=== PATIENT | male | born 1985 | race American Indian/Alaskan Native ===

== ENCOUNTER 2016-10-12 19:40 | Emergency (ER) | payer SELFPAY ==
[2016-10-12] MEDS ORDERED: TYLENOL PO STA (20:17)
[2016-10-12] MEDS ORDERED: ZOFRAN IV ONE (21:28)
[2016-10-12] MEDS ORDERED: MORPHINE IV ONE (21:28)
--- NOTE | 2016-10-12 21:35 | Emergency Department Report ---
HPI - General Chief Complaint: Pain General Time Seen by Provider: 10/12/16 21:20 - HPI HPI: Room 18 The patient is 30-year-old male presenting with a chief complaint of headache abdominal pain and groin pain. Patient states his symptoms began 4 days ago with a retro-orbital headache. Patient states 2 days ago he developed pain in the right testicle radiating to his right abdomen. Patient admits to nausea but denies vomiting. Patient denies dysuria or hematuria. Patient admits to a cough is occasionally productive of yellow-green sputum. Patient states he did not notice a fever at home but admits to chills. Patient currently gives his pain a score of 10/10 Location: Head, right lower quadrant, right testicle Duration: 2-4 days Quality: Pain Severity: 10/10 Modifying factors: [see above] Context: [see above] Mode of transportation: [not driving] ED Past Medical Hx - Past Medical History Previous Medical History?: No - Surgical History Past Surgical History?: No - Family History Family history: no significant - Social History Smoking Status: Current Some Day Smoker Substance Use Type: Marijuana (occasional) - Medications Home Medications: Home Medications Medication Instructions Recorded Confirmed Last Taken Type Amoxicillin/K Clav Tab [Augmentin 1 tab PO Q12HR #20 tab 10/13/16 Unknown Rx 875 mg] HYDROcodone/APAP 5-325 [[place] 1 - 2 each PO Q6HR PRN #14 tablet 10/13/16 Unknown Rx 5/325] ED Review of Systems ROS: Stated complaint: HEADACHE/GROIN/ABD PAIN Other details as noted in HPI Comment: All other systems reviewed and negative Constitutional: chills, fever Eyes: denies: eye discharge, vision change ENT: denies: ear pain, throat pain Respiratory: cough Cardiovascular: denies: chest pain, palpitations Endocrine: no symptoms reported Gastrointestinal: abdominal pain, nausea. denies: vomiting Genitourinary: testicular pain. denies: urgency, dysuria, hematuria Musculoskeletal: denies: back pain, joint swelling, arthralgia Skin: denies: rash, lesions Neurological: headache Psychiatric: denies: anxiety, depression Hematological/Lymphatic: denies: easy bleeding, easy bruising Physical Exam - Physical Exam Vital Signs: Vital Signs 10/12/16 10/12/16 19:56 20:02 Temperature 101.6 F H 101.6 F H Pulse Rate 88 88 Respiratory 18 Rate Blood Pressure 150/90 Blood Pressure 149/91 [Right] O2 Sat by Pulse 100 100 Oximetry Physical Exam: GENERAL: The patient is well-developed well-nourished male lying on stretcher not appear to be in acute distress. [] HEENT: Normocephalic. Atraumatic. Extraocular motions are intact. Patient has moist mucous membranes. NECK: Supple. No meningitic signs are noted. Trachea midline CHEST/LUNGS: Clear to auscultation. There is no respiratory distress noted. HEART/CARDIOVASCULAR: Regular. There is no tachycardia. There is no gallop rub or murmur. ABDOMEN: Abdomen is soft, with mild discomfort to palpation in the right lower quadrant. Patient has normal bowel sounds. There is no abdominal distention. SKIN: There is no rash. There is no edema. There is no diaphoresis. NEURO: The patient is awake, alert, and oriented. The patient is cooperative. The patient has normal speech MUSCULOSKELETAL: There is no evidence of acute injury. ED Course Vital Signs 10/12/16 10/12/16 19:56 20:02 Temperature 101.6 F H 101.6 F H Pulse Rate 88 88 Respiratory 18 Rate Blood Pressure 150/90 Blood Pressure 149/91 [Right] O2 Sat by Pulse 100 100 Oximetry - Lumbar Puncture Consent Obtained: verbal consent Time Out Performed: Yes Indication for Procedure: headache, fever work up Patient Position: Sitting Upright/Leaning F Skin Prep: Povidone-Iodine 1% Local Anesthetic Used: Lidocaine 1% Amount of anesthesia used (mls): 4 Spinal Needle Gauge: 20G Spinal Needle Length: 3.5in Interspace Used: L3-L4 Fluid Initially Obtained: clear Complications: none Patient Tolerated Procedure: well ED Medical Decision Making - Lab Data Result diagrams: 10/12/16 21:37 10/12/16 21:37 Laboratory Tests 10/12/16 10/12/16 10/12/16 21:37 21:37 21:37 WBC 6.0 RBC 4.62 Hgb 14.6 Hct 42.8 MCV 93 MCH 32 MCHC 34 RDW 12.8 L Plt Count 101 L Lymph % (Auto) 21.1 Crane % (Auto) 10.2 H Eos % (Auto) 0.2 Baso % (Auto) 0.6 Lymph # 1.3 Crane # 0.6 Eos # 0.0 Baso # 0.0 Seg Neutrophils % 67.9 Seg Neutrophils # 4.1 PT 14.0 INR 1.09 VBG pH Sodium 136 L Potassium 3.8 Chloride 100.4 Carbon Dioxide 22 Anion Gap 17 BUN 6 L Creatinine 0.7 L Estimated GFR > 60 BUN/Creatinine Ratio 8.57 Glucose 97 Lactic Acid Calcium 8.7 Total Bilirubin 0.40 AST 33 ALT 21 Alkaline Phosphatase 60 Total Protein 6.5 Albumin 3.9 Albumin/Globulin Ratio 1.5 Urine Color Urine Turbidity Urine pH Ur Specific Raymond Urine Protein Urine Glucose (UA) Urine Ketones Urine Blood Urine Nitrite Urine Bilirubin Urine Urobilinogen Ur Leukocyte Esterase Urine WBC (Auto) Urine RBC (Auto) Urine Mucus 10/12/16 10/12/16 10/12/16 21:37 21:37 22:00 WBC RBC Hgb Hct MCV MCH MCHC RDW Plt Count Lymph % (Auto) Crane % (Auto) Eos % (Auto) Baso % (Auto) Lymph # Crane # Eos # Baso # Seg Neutrophils % Seg Neutrophils # PT INR VBG pH 7.431 H Sodium Potassium Chloride Carbon Dioxide Anion Gap BUN Creatinine Estimated GFR BUN/Creatinine Ratio Glucose Lactic Acid 1.00 Calcium Total Bilirubin AST ALT Alkaline Phosphatase Total Protein Albumin Albumin/Globulin Ratio Urine Color Kirti Urine Turbidity Clear Urine pH 6.0 Ur Specific Raymond 1.029 Urine Protein 30 mg/dl Urine Glucose (UA) Neg Urine Ketones Tr Urine Blood Neg Urine Nitrite Neg Urine Bilirubin Neg Urine Urobilinogen 2.0 Ur Leukocyte Esterase Neg Urine WBC (Auto) 1.0 Urine RBC (Auto) 9.0 Urine Mucus 3+ 10/12/16 23:32 WBC RBC Hgb Hct MCV MCH MCHC RDW Plt Count Lymph % (Auto) Crane % (Auto) Eos % (Auto) Baso % (Auto) Lymph # Crane # Eos # Baso # Seg Neutrophils % Seg Neutrophils # PT INR VBG pH Sodium Potassium Chloride Carbon Dioxide Anion Gap BUN Creatinine Estimated GFR BUN/Creatinine Ratio Glucose Lactic Acid 1.00 Calcium Total Bilirubin AST ALT Alkaline Phosphatase Total Protein Albumin Albumin/Globulin Ratio Urine Color Urine Turbidity Urine pH Ur Specific Raymond Urine Protein Urine Glucose (UA) Urine Ketones Urine Blood Urine Nitrite Urine Bilirubin Urine Urobilinogen Ur Leukocyte Esterase Urine WBC (Auto) Urine RBC (Auto) Urine Mucus CSF pending - Radiology Data Radiology results: report reviewed (CT head, testicular ultrasound, CT abdomen and pelvis), image reviewed (chest x-ray, CT head, CT abdomen and pelvis, testicular ultrasound) interpreted by me: Chest x-ray-no focal infiltrates, no pneumothorax Testicular ultrasound (read by radiologist)-heterogeneous right epididymis is not markedly enlarged hyperemic. Small right hydrocele is present. On his are nonspecific but could represent mild/early epididymitis in the proper clinical setting. Incidental left epididymal head mass may represent adenomatoid tumor, complex spermatocele or sperm granuloma as well as inflammatory condition such as sarcoidosis. Overall benign etiology is favored. Routine urology consultation as suggested. Given symptoms, CT of the abdomen and pelvis may be helpful. CT head (read by radiologist)-no acute intracranial abnormality. Consider additional imaging including MRI for worsening/persistent symptoms CT abdomen and pelvis (read by radiologist) (-no acute findings in the abdomen or pelvis - Differential Diagnosis testicular torsion, epididymitis, appendicitis, meningitis, pyelonephritis Critical care attestation.: If time is entered above; I have spent that time in minutes in the direct care of this critically ill patient, excluding procedure time. ED Disposition Clinical Impression: Fever, Headache, Mass of left testicle, Cough, Abdominal pain Is pt being admited?: No Does the pt Need Aspirin: No Condition: Stable Instructions: Fever in Adults (ED), Lumbar Puncture (ED), Acute Headache (ED) Additional Instructions: Return to the emergency department immediately should you develop worsening symptoms, fever, inability to tolerate food or liquid or any other concerns. Prescriptions: Amoxicillin/K Clav Tab [Augmentin 875 mg] 1 tab PO Q12HR #20 tab HYDROcodone/APAP 5-325 [[place] 5/325] 1 - 2 each PO Q6HR PRN #14 tablet PRN Reason: Pain Referrals: PRIMARY CARE, [Primary Care Provider] - 3-5 Days ADAMARIS SHIN MD [Staff Physician] - 3-5 Days (Dr. Shin is a neurologist. Please follow up with him for further evaluation of your left testicular mass)
[2016-10-12] MEDS ORDERED: NACL 0.9% 1000 ML 1,000 ML IV ONE (21:46)
[2016-10-12 21:50] LABS: Basophils % (Auto) 0.6 % (0.0-1.8); Eosinophils % (Auto) 0.2 % (0.0-4.3); Hematocrit 42.8 % (35.5-45.6); Hemoglobin 14.6 gm/dl (11.8-15.2); Mean Corpuscular HGB Conc 34 % (32-34); Mean Corpuscular Hemoglobin 32 pg (28-32); Mean Corpuscular Volume 93 fl (84-94); Platelet Count 101 K/mm3 (140-440); Red Blood Count 4.62 M/mm3 (3.65-5.03); Red Cell Distribution Width 12.8 % (13.2-15.2)
[2016-10-12 22:01] LABS: INR 1.09 (0.87-1.13)
--- NOTE | 2016-10-12 22:03 | Ultrasound Report ---
FINAL REPORT EXAM: US TESTICULAR DOPPLER COMP HISTORY: Right Testicular Pain, right abdominal pain radiating to the testicle, fever COMPARISONS: None. FINDINGS: Grayscale, color and spectral Doppler ultrasound evaluation of the testicles Testicular echotexture, color and spectral Doppler evaluation are within normal limits. Testicular size also within normal limits. Right testicle measures 4.5 x 1.9 x 3.4 cm. Left testicle measures 4.4 x 2 x 3 cm. Heterogeneous right epididymis contains both hypoechoic and hyperechoic regions. No hyperemia or definite focal mass identified. Small right hydrocele. The left epididymal head is enlarged and heterogeneous with a masslike quality containing multiple tubular structures as well as internal flow on color Doppler left epididymal mass measures 19 x 15 x 12 millimeters. IMPRESSION: Heterogeneous right epididymis is not markedly enlarged or hyperemic. A small right hydrocele is present. Findings are nonspecific but could represent mild/early epididymitis in the proper clinical setting. Incidental left epididymal head mass may represent adenomatoid tumor, complex spermatocele or sperm granuloma as well as inflammatory conditions such is sarcoidosis. Overall benign etiology is favored. Routine urology consultation is suggested. Given symptoms, CT of the abdomen and pelvis may be helpful. Dr. Gonzalez discussed findings with Dr. Cuadra at [address] [employer] following the examination.
[2016-10-12 22:09] LABS: Alanine Aminotransferase 21 units/L (7-56); Albumin 3.9 g/dL (3.9-5); Albumin/Globulin Ratio 1.5 %; Alkaline Phosphatase 60 units/L (35-129); Anion Gap 17 mmol/L; BUN/Creatinine Ratio 8.57; Blood Urea Nitrogen 6 mg/dL (9-20); Calcium 8.7 mg/dL (8.4-10.2); Carbon Dioxide 22 mmol/L (22-30); Chloride 100.4 mmol/L (98-107); Glucose 97 mg/dL (75-100); Potassium 3.8 mmol/L (3.6-5.0); Sodium 136 mmol/L (137-145); Total Protein 6.5 g/dL (6.3-8.2)
[2016-10-12 22:26] LABS: Bilirubin,Urine NEG (Negative); Blood,Urine NEG (Negative); Ketones,Urine TR mg/dL (Negative); Leukocyte Esterase,Urine NEG (Negative); Mucus,Urine 3+ /HPF; Nitrite,Urine NEG (Negative)
[2016-10-12] MEDS ORDERED: NACL ONE (23:32)
--- NOTE | 2016-10-13 00:14 | Cat Scan Report ---
FINAL REPORT EXAM: CT HEAD/BRAIN WO CON HISTORY: headache TECHNIQUE: CT imaging acquired through the head without intravenous contrast. Transaxial reformations are provided. PRIORS: None. FINDINGS: The ventricles, cisterns and sulci are normal. No intraparenchymal or extra-axial mass, hemorrhage, or mass effect. Lamb and white-matter differentiation is normal. Normal spherical shape of the globes. Partially visualized paranasal sinuses and mastoid air cells are clear. No skull or facial fracture visualized. IMPRESSION: No acute intracranial abnormality. Consider additional imaging including MRI for worsening/persistent symptoms.
--- NOTE | 2016-10-13 00:55 | Cat Scan Report ---
FINAL REPORT EXAM: CT ABDOMEN PELVIS W CON HISTORY: right lower quadrant abdominal pain, fever TECHNIQUE: Dynamic helical CT scan through the abdomen and pelvis during intravenous injection of iodinated contrast. Delayed scanning was performed through the kidneys and bladder. Images are reconstructed in the sagittal and coronal planes. Oral contrast was not given. 100 cc of Omnipaque 300 were used for the IV contrast agent. PRIORS: None. FINDINGS: The lung bases are clear. The liver, gallbladder, pancreas, spleen and adrenal glands appear normal. The kidneys appear normal. The pelvic organs appear grossly normal. The stomach appears grossly within normal limits. There are no abnormally dilated loops of bowel or acute inflammatory changes. A normal-appearing appendix is identified. The abdominal aorta has a normal diameter. The bones and subcutaneous soft tissues are unremarkable for age. IMPRESSION: No acute findings in the abdomen/pelvis
[2016-10-13] MEDS ORDERED: ROCEPHIN/NS 2 GM/100 ML 2 GM/100 ML BAG IV ONE (02:00)
[2016-10-13 02:13] LABS: Glucose,CSF 56 mg/dL
[2016-10-13 04:23] LABS: Appearance,CSF Clear; CSF Diff Status Complete; White Blood Cell,CSF 4 /mm3 (1-10)
[2016-10-13 04:24] LABS: Basophils CSF 0 %
[2016-10-13 06:07] VITALS: BP 142/57
[2016-10-13 06:35] LABS: Appearance,CSF Clear; CSF Diff Status Complete
[2016-10-13 06:36] LABS: Basophils CSF 0 %; White Blood Cell,CSF 1 /mm3 (1-10)
[2016-10-13 06:47] LABS: Appearance,CSF TNR; Basophils CSF TNR %; CSF Diff Status TNR; White Blood Cell,CSF TNR /mm3 (1-10)
--- NOTE | 2016-10-13 08:19 | XRay Report ---
CHEST ONE VIEW INDICATION: Possible sepsis. COMPARISON: None similar. FINDINGS: Portable, single, frontal chest radiograph demonstrates normal cardiomediastinal silhouette. Clear lungs. Unremarkable bones. CONCLUSION: No acute disease in the chest. Thank you for the opportunity to participate in this patient's care.
== END 2016-10-13 07:03 | disposition home or self-care (01) ==
LOC: ED 19:40
DX: R51 Headache (principal); R50.9 Fever, unspecified; R10.9 Unspecified abdominal pain; R05 Cough; N50.89 Other specified disorders of the male genital organs; F17.200 Nicotine dependence, unspecified, uncomplicated; F12.10 Cannabis abuse, uncomplicated
CPT/HCPCS: 36415; 62270; 70450; 71010; 74177; 80053; 81001; 82140; 82805; 82947; 84160; 85025; 85610; 86850; 86900; 86901; 86920; 87040; 87086; 87116; 89051; 93005; 93010; 93975; 96361; 96365; 96375; 99285; J0696; J2270; J2405; J7030; P9016; Q9967

== ENCOUNTER 2016-10-13 16:44 | Emergency (ER) | payer SELFPAY ==
[2016-10-13] MEDS ORDERED: NACL 0.9% 500 ML IR ONE (16:57)
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
[2016-10-13] MEDS ORDERED: CALCIUM CHLORIDE IV ONE (22:41)
[2016-10-13] MEDS ORDERED: ADRENALIN ONE (22:41)
[2016-10-13] MEDS ORDERED: SODIUM BICARBONATE IV ONE (22:41)
[2016-10-13] MEDS ORDERED: ATROPINE 0.1% (CARDIAC) ONE (22:41)
== END 2016-10-13 20:10 ==
LOC: ED 16:44
DX: S21.109A Unspecified open wound of unspecified front wall of thorax without penetration into thoracic cavity, initial encounter (principal); I46.9 Cardiac arrest, cause unspecified; W34.09XA Accidental discharge from other specified firearms, initial encounter; Y93.9 Activity, unspecified; Y92.9 Unspecified place or not applicable; Y99.9 Unspecified external cause status
CPT/HCPCS: 31500; 32551; 43246; 92950; 99291; J0171; J0461